=== PATIENT | male | born 1980 | race Hispanic/Latino ===

== ENCOUNTER 2025-06-14 16:57 | Emergency (ER) | payer BC, SELFPAY ==
[2025-06-14] MEDS ORDERED: Acetaminophen 500 MG TAB ONE (17:34)
== END 2025-06-14 17:56 | disposition home or self-care (01) ==
LOC: MADERS 16:57
DX: R51.9 Headache, unspecified (principal); R03.0 Elevated blood-pressure reading, without diagnosis of hypertension; Z75.8 Other problems related to medical facilities and other health care
CPT/HCPCS: 99283